=== PATIENT | female | born 1980 | race Caucasian/White ===

== ENCOUNTER 2017-10-10 19:52 | Emergency (ER) | payer OTHER ==
[~2017-10-10] VITALS: Ht 162.6 cm; Wt 68.0 kg
[2017-10-10 20:45] LABS: ABSOLUTE NEUTROPHILS 12.8 thou/uL (1.4-8.2); BASOPHILS 0.2 % (0.0-2.0); EOSINOPHILS 0.3 % (0.0-3.0); HEMATOCRIT 39.7 % (37.0-47.0); HEMOGLOBIN 13.2 gm/dL (12.0-15.0); LYMPHOCYTES 8.7 % (24.0-44.0); MCH 29.7 pg (26.0-34.0); MCHC 33.3 g/dL (28.0-37.0); MCV 89.1 fL (80.0-100.0); MONOCYTES 6.3 % (1.0-8.0); PLATELET COUNT 222 thou/uL (150-400); POLYS 84.5 % (36.0-66.0); RBC 4.46 mil/uL (4.20-5.00); RDW 14.2 % (10.5-14.5); WBC 15.2 thou/uL (4.0-11.0)
[2017-10-10 20:48] LABS: ANION GAP 8 mmol/L (7-16); BUN 10 mg/dL (7-18); CALCIUM 9.3 mg/dL (8.5-10.1); CHLORIDE 104 mmol/L (98-107); CO2 25 mmol/L (21-32); CREATININE 0.9 mg/dL (0.6-1.0); GLUCOSE 114 mg/dL (74-106); POTASSIUM 3.9 mmol/L (3.5-5.1); SODIUM 137 mmol/L (136-145)
[2017-10-10 20:54] LABS: ALBUMIN 3.4 g/dL (3.4-5.0); DIRECT BILIRUBIN < 0.1 mg/dL (<0.1-0.3); LIPASE 93 U/L (73-393); SGOT 20 U/L (15-37); SGPT 22 U/L (30-65); TOTAL BILIRUBIN 0.3 mg/dL (<0.1-1.0); TOTAL PROTEIN 7.9 g/dL (6.4-8.2)
[2017-10-10 21:02] LABS: URINE BILIRUBIN NEGATIVE (Negative); URINE BLOOD 1+ (Negative); URINE CLARITY CLEAR; URINE COLOR YELLOW; URINE GLUCOSE-RANDOM* NEGATIVE (Negative); URINE KETONES NEGATIVE (Negative); URINE LEUKOCYTES-REFLEX NEGATIVE (Negative); URINE NITRITE-REFLEX NEGATIVE (Negative); URINE PROTEIN (DIPSTICK) 1+ (Negative); URINE SPECIFIC GRAVITY >= 1.030 (1.005-1.035); URINE UROBILINOGEN 0.2 E.U./dl (0.2-1.0)
[2017-10-10 21:11] LABS: BACTERIA-REFLEX 1-9 Few /HPF (None Seen); CASTS None Seen /LPF (None Seen); CRYSTALS None Seen /LPF (None Seen); MUCUS 0-3 Light strn/LPF (None Seen); SQUAMOUS 0-3 Few /LPF (0-3); URINE RBC 0-2 Rare /HPF (0-2); URINE WBC-REFLEX 0-5 Rare /HPF (0-5)
[2017-10-10] MEDS ORDERED: BENTYL 20 MG TA20 M1 PO (23:17)
[2017-10-10] MEDS ORDERED: ZOFRAN ODT4 MG PO (23:17)
[2017-10-10 23:54] VITALS: BP 103/52
== END 2017-10-10 23:54 | disposition home or self-care (01) ==
LOC: ER 19:52
PROVIDERS: Emergency Medicine
DX: R10.31 Right lower quadrant pain (principal); R10.32 Left lower quadrant pain; R11.2 Nausea with vomiting, unspecified; R19.7 Diarrhea, unspecified; M79.1 Myalgia; R42 Dizziness and giddiness; G89.29 Other chronic pain; M54.2 Cervicalgia